=== PATIENT | male | born 1980 | race Caucasian/White ===

== ENCOUNTER 2017-08-04 22:26 | Emergency (ER) | payer BC, OTHER ==
[~2017-08-04] VITALS: Ht 167.6 cm; Wt 62.3 kg
[2017-08-04 22:28] VITALS: TEMP 36.3; Ht 167.6 cm; Wt 62.3 kg
[2017-08-04] MEDS ORDERED: MoRPHine SULFATE 4 MG/ML 1 ML CARP\\VIAL IV PRN (23:15)
[2017-08-04] MEDS ORDERED: ONDANSETRON INJ 2 MG/ML 2 ML VIAL IV PRN (23:15)
[2017-08-04] MEDS ORDERED: MoRPHine SULFATE 2 MG/ML CARP ONE (23:31)
[2017-08-05] MEDS ORDERED: HYDR-5688 PO (00:19)
--- NOTE | 2017-08-05 00:24 | EMERGENCY ROOM VISIT NOTE ---
History First contact with patient: 22:58 Chief Complaint: HAND PAIN/INJURY Stated Complaint: BROKEN HAND History of Present Illness The patient is a 36 year old male who presents to the Emergency Room with complaints of severe pain in his right hand after he hit a metal pole at work. The patient was not yet "on the clock." He is complaining of some numbness and tingling in his fourth and fifth finger. He denies any other injuries. This was not an assault. He says that he is ambidextrous. Review of Systems 6 system review negative. Please see pertinent positives in the history of present illness section. Past Medical/Surgical History Mentally challenged Social History Smoking Status: Current Every Day Smoker Current/Historical Medications No Active Prescriptions or Reported Meds Physical Exam Vital Signs Date Time Temp Pulse Resp B/P (MAP) Pulse Ox O2 Delivery O2 Flow Rate FiO2 08/04/17 22:28 36.3 60 18 105/71 98 Room Air Physical Exam VITALS: Vitals are noted on the nurse's note and reviewed by myself. Vital signs stable. GENERAL: 36-year-old male, in obvious discomfort. SKIN: The skin was intact HEAD: Normocephalic atraumatic. MUSCULOSKELETAL: RIGHT HAND: Visual deformity at the carpal metacarpal joint of the fourth and fifth finger. It appears to be dorsally subluxed. Diminished feeling in the fourth and fifth finger. Capillary refill is less than 2 seconds. Radial and ulnar pulses intact. NEURO: Patient was alert and oriented to person place and time. No focal neurological deficits. Medical Decision & Procedures Medications Administered Medications (Trade) Dose Ordered Sig/Flaco Route Start Time Stop Time Status Last Admin Dose Admin Morphine Sulfate (MoRPHine SULFATE INJ) 4 mg Q1H PRN IV 08/04/17 23:15 08/18/17 23:14 08/04/17 23:13 4 MG Ondansetron HCl (Zofran Inj) 4 mg Q2H PRN IV 08/04/17 23:15 09/03/17 23:14 08/04/17 23:13 4 MG Morphine Sulfate (MoRPHine SULFATE INJ) 2 mg STK-MED ONCE .ROUTE 08/04/17 23:31 08/04/17 23:32 DC 08/04/17 23:34 2 MG ED Course Patient was seen and examined Vital signs including blood pressure were reviewed medications list was verified with patient A saline lock was established. The patient was given morphine 4 mg IV and Zofran 4 mg IV. Imaging was taken and personally reviewed by myself. Subluxation of the carpal metacarpal joint of the fourth and fifth finger were noted. The subluxations were reduced using gentle distal and dorsal pressure of the fourth and fifth metacarpal. It was easily reduced. The patient tolerated the procedure well. His pain was improved. Sensation in the fourth and fifth finger were intact. Post reduction films are taken in satisfactory He was placed in a Orthoglass ulnar gutter splint Discharge instructions were thoroughly reviewed. The patient will need follow- up with orthopedics. An note was left with case management to make this for him. He was given a sling, and discharged with a otr driver I Medical Decision Differential diagnosis: Dislocation, fracture, tendon injury This patient is a 36-year-old male that presented to the emergency department after punching a metal pole that occurred at work. This was reportedly before his shift. He had a visual deformity of the right hand. Imaging confirmed a dorsal subluxation of the carpal metacarpal joint of the fourth and fifth finger. This was easily reduced after the patient was given pain medication. Post reduction films were satisfactory. The patient was placed in an ulnar gutter splint. I am still concerned about tendon injury. The patient was advised to follow-up with orthopedics. He voiced understanding. Given the cognitive delay, case management will be contacting the patient in the morning for the follow-up appointment. This chart was completed in part utilizing [employer] Speech Voice Recognition software. Attempts were made to minimize the grammatical errors, random word insertions, pronoun errors and incomplete sentences. Any formal questions or concerns about the content, text or information contained within the body of this dictation should be directly addressed to the provider for clarification. Blood Pressure Screening Patient's blood pressure: Normal blood pressure Impression Primary Impression: Subluxation Departure Information Dispostion Home / Self-Care Condition GOOD Prescriptions Hydrocodone/Acetaminophen 5MG/325MG (Norman 5MG/325MG) Tab 1-2 TABLET PO Q4H Y for Pain, #15 TAB For Initial Treatment Prov: Yelena Powell PA-C 08/05/17 Referrals No Doctor, Assigned (PCP) Matt Skinner MD Patient Instructions My [facility] Additional Instructions You were evaluated in the emergency department tonight for a dislocation of your right hand. The dislocation was reduced and you were placed in a splint. Please keep this splint in place until you follow up with orthopedics. Rest the arm in a sling. Elevate as much as possible over the next 48 hours. Apply ice to the top of the hands for 20 minutes at a time. Please take ibuprofen 600 mg (2 [id number] tablets) every 6 hours as needed for pain Please take Norman one tablet every 4 hours as needed for severe pain. Please do not drive or drink alcohol well taking this medication. Please call the orthopedic doctors office in the morning for a follow-up appointment. Please return to the emergency department with any new or worsening symptoms. Do not return to work until seen by the orthopedic doctor. Work Instructions Return To Work: 3 days
[2017-08-05 00:50] VITALS: BP 119/67; PULSE 76; O2SAT 98
--- NOTE | 2017-08-05 06:50 | DIAGNOSTIC IMAGING REPORT ---
R HAND MIN 3 VIEWS ROUTINE CLINICAL HISTORY: Right hand pain following trauma. COMPARISON: None FINDINGS: Note is made of dorsal dislocation of the right fourth and fifth metacarpals with respect to the hamate. No fracture is identified. There is associated soft tissue swelling. Distal right radius and ulna are intact. IMPRESSION: Right fourth and fifth carpometacarpal joint dorsal dislocation. No fracture identified. Electronically signed by: Keo Cox M.D. 08/05/2017 6:48 AM Dictated Date/Time: 08/05/2017 6:45 AM
--- NOTE | 2017-08-05 07:03 | DIAGNOSTIC IMAGING REPORT ---
R HAND MIN 3 VIEWS ROUTINE CLINICAL HISTORY: Status post reduction. COMPARISON: Right hand radiographs August 04, 2017 at 11:01 PM. FINDINGS: There has been interval reduction of the right fourth and fifth carpometacarpal joint dislocations since prior exam. Alignment now appears anatomic. Lateral view demonstrates a few tiny bone fragments overlying the dorsal aspects of the carpometacarpal joints which measure up to 4 mm. These likely reflect tiny fracture fragments. No additional fractures are identified. IMPRESSION: 1. Anatomic alignment of the right fourth and fifth carpometacarpal joints status post reduction. 2. A few tiny suspected fracture fragments overlying the dorsal aspect of the carpometacarpal joints which measure up to 4 mm. Electronically signed by: Keo Cox M.D. 08/05/2017 7:01 AM Dictated Date/Time: 08/05/2017 6:59 AM
== END 2017-08-05 00:52 | disposition home or self-care (01) ==
LOC: C.EDB 22:28 → C.EDC 08-05 00:52
DX: S63.051A Subluxation of other carpometacarpal joint of right hand, initial encounter (principal); W22.8XXA Striking against or struck by other objects, initial encounter; F17.200 Nicotine dependence, unspecified, uncomplicated

== ENCOUNTER → 2018-01-21 | Outpatient (CLI) | payer OTHER ==
[~2018-01-21] MED LIST: HYDR-5688 PO
== END | disposition home or self-care (01) ==
LOC: C.LAB 03:32
DX: Z02.83 Encounter for blood-alcohol and blood-drug test (principal)

== ENCOUNTER 2018-03-09 00:03 | Emergency (ER) | payer OTHER ==
[~2018-03-09] VITALS: Ht 167.6 cm; Wt 62.9 kg
[2018-03-09 00:14] VITALS: TEMP 36.6; Ht 167.6 cm; Wt 62.9 kg
--- NOTE | 2018-03-09 00:23 | EMERGENCY ROOM VISIT NOTE ---
History First contact with patient: 00:18 Chief Complaint: LACERATION/CUT (SUT/DERMABOND) Stated Complaint: CUT FINGER,NAUSEA, (WORKERS COMP) Nursing Triage Summary: Patient reports that he cut his 5th (pinky) finger with a knife at work. Laceration to finger, covered with think bandage in triage. History of Present Illness The patient is a 37 year old male who presents to the Emergency Room with complaints of laceration to the right fifth digit. The patient was using a crepe box tender at work when he sustained a laceration to his right fifth digit. He states that he has no numbness over the area but does complain of significant pain. A pressure dressing was applied prior to arrival because the patient states he had very significant bleeding. He states the pain is improved at this time. He states the bleeding is also improved at this time. He denies having any numbness over the area. He states he does not notice that he is having difficulty moving the finger. He denies having any nausea or vomiting. He has no other injuries. This occurred prior to arrival. Review of Systems See HPI for pertinent positives & negatives. A total of 10 systems reviewed and were otherwise negative. Past Medical/Surgical History Surgical Problems: (1) H/O hand surgery Social History Smoking Status: Current Every Day Smoker Smokeless Tobacco Use: Yes Alcohol Use: occasionally Drug Use: none Marital Status: single Housing Status: lives with family Current/Historical Medications Scheduled Cephalexin Monohydrate (Keflex), 500 MG PO QID Physical Exam Vital Signs Date Time Temp Pulse Resp B/P (MAP) Pulse Ox O2 Delivery O2 Flow Rate FiO2 03/09/18 00:14 36.6 65 18 120/86 98 Room Air Physical Exam GENERAL: Patient is awake alert in no acute distress patient is resting comfortably and showing no signs of anxiety EYES: The conjunctivae are clear. The pupils are round and reactive. EARS, NOSE, MOUTH AND THROAT: The nose is without any evidence of any deformity. Mucous membranes are moist tongue is midline NECK: The neck is nontender and supple. RESPIRATORY: Normal respiratory effort is noted there is no evidence of wheezing rhonchi or rales CARDIOVASCULAR: Regular rate and rhythm noted there no murmurs rubs or gallops normal S1 normal S2 GASTROINTESTINAL: The abdomen is soft. Bowel sounds are present in all quadrants. Abdomen is nontender MUSCULOSKELETAL/EXTREMITIES: There is no evidence of gross deformity full range of motion is noted in the hips and shoulders. There is a laceration to the right fifth digit. It is curvilinear from the medial aspect extending proximally. The patient has the ability to flex the finger however the laceration extends into the flexor compartment. There is no definite laceration noted to the tendon. SKIN: There is no obvious evidence of any rash. There is a laceration over the right fifth digit. It is approximately 3 cm in length. NEUROLOGIC: Patient is awake alert and oriented x3. Medical Decision & Procedures Medications Administered Medications (Trade) Dose Ordered Sig/Flaco Route Start Time Stop Time Status Last Admin Dose Admin Diphtheria/ Pertussis/Tetanus Vacc (Adacel Inj) 0.5 ml ONCE ONCE IM. 03/09/18 00:30 03/09/18 00:31 DC 03/09/18 00:46 0.5 ML Procedure Location: Right fifth digit Total length: 3.0 cm Complexity: Moderate Verbal consent was obtained after the risks and benefits were explained, including but not limited to bleeding, scarring, infection, pain, and bone/joint /nerve damage. At this time, the risks of the procedure are less than the risks of NOT performing the procedure. A time out was taken and the correct patient and site identified. The skin was prepped with betadine. The target area was anesthetized with 4 ml of 1% lidocaine without epinephrine in a digital block at the base of the right fifth digit. Copious irrigation was performed using normal saline solution. The skin was re-prepped with betadine and a sterile field set. The wound was explored for foreign bodies and none found. Examination revealed no injury to deep structures such as tendons, bone, or significant blood vessels. Debridement was not performed. The wound edges were approximated using 10 simple interrupted sutures, 5-0 nylon sutures. Hemostasis and excellent approximation was achieved. Antibacterial ointment and a sterile dressing applied. Detailed wound care instructions and signs and symptoms of infection reviewed with the patient. No complications and the patient tolerated the procedure well. Medical Decision Nursing notes reviewed. Additional history is obtained from the patient's coworker. Antral diagnosis in this patient could include infection tendon injury foreign body continued bleeding and other differential diagnoses were considered. The patient is a 37-year-old male who presented to the emergency department for an evaluation after sustaining a laceration to his right hand. The patient had appeared to be neurovascularly intact. He did have some trouble flexing the right fifth digit however on physical exam and direct visualization there is no definite tendon injury. The patient had wound care in usual fashion including irrigation as well as suturing. The patient was encouraged to follow-up with the orthopedic hand specialist for further evaluation but also he was encouraged to follow-up with the occupational medicine physician for their company. I also encouraged him to return the emergency department immediately if signs of infection develop. He was started on antibiotics in the emergency department. He was encouraged to continue using Motrin and Tylenol for pain. Impression Primary Impression: Laceration Departure Information Prescriptions Cephalexin Monohydrate (KEFLEX) 500 Mg Cap 500 MG PO QID, #20 CAP Prov: Buck Ghosh, DO 03/09/18 Referrals No Doctor, Assigned (PCP) Patient Instructions My [facility]
[2018-03-09] MEDS ORDERED: DIPHTHERIA/TETANUS/PERTUSSIS 0.5 ML SYR/VIAL IM. ONE (00:30)
[2018-03-09] MEDS ORDERED: LIDOCAINE 1% BUFFERED INJ 5 ML VIAL INFIL ONE (00:30)
[2018-03-09] MEDS ORDERED: CEPH500C2 PO (00:48)
[2018-03-09] MEDS ORDERED: CEPHALEXIN MONOHYDRATE 250 MG CAP PO ONE (01:00)
[2018-03-09] MEDS ORDERED: CEPHALEXIN 500MG HOME PACK 1 EA BTL PO ONE (01:00)
[2018-03-09 01:06] VITALS: BP 118/59; PULSE 59; O2SAT 99
== END 2018-03-09 01:07 | disposition home or self-care (01) ==
LOC: C.EDB 00:04 → C.EDC 01:07
DX: S61.216A Laceration without foreign body of right little finger without damage to nail, initial encounter (principal); W26.0XXA Contact with knife, initial encounter; Z23 Encounter for immunization; F17.200 Nicotine dependence, unspecified, uncomplicated